=== PATIENT | male | born 1985 | race Caucasian/White ===

== ENCOUNTER 2018-08-18 01:59 | Emergency (ER) | payer SELFPAY ==
[2018-08-18] MEDS ORDERED: IBUPROFEN 800 MG TAB PO ONE (02:04)
[2018-08-18] MEDS ORDERED: NS 1,000 ML IV ONE (02:04)
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
[2018-08-18 04:10] VITALS: BP 99/61
== END 2018-08-18 04:46 | disposition home or self-care (01) ==
LOC: EDUNIT#
DX: S32.2XXA Fracture of coccyx, initial encounter for closed fracture (principal); V13.9XXA Unspecified pedal cyclist injured in collision with car, pick-up truck or van in traffic accident, initial encounter; Y93.55 Activity, bike riding; Y92.410 Unspecified street and highway as the place of occurrence of the external cause; Y99.9 Unspecified external cause status